=== PATIENT | female | born 1960 | race Caucasian/White ===

== ENCOUNTER 2016-08-14 08:04 | Outpatient (CLI) | payer OTHER ==
[~2016-08-14 08:04] MED LIST: ASPI81TA2 PO; CARV6.2554 PO; GLU500 PO; INSU100V9 SQ; METF1000 PO; MULT-518 PO; NPH,100V SUBCUT; OMEP20CA10 PO; OMEP20CA4 PO; PARO-41 PO; SIMV20TA2 PO; SIMV20TA6 PO
[2016-08-14 08:41] LABS: BASOPHILS % (AUTO) 0.5 % (0.0-2.0); EOSINOPHILS # (AUTO) 0.3 K/uL (0.0-0.4); EOSINOPHILS % (AUTO) 2.8 % (0.0-4.0); HEMATOCRIT 35.1 % (36-48); HEMOGLOBIN 11.2 g/dL (12.0-16.0); LYMPHOCYTES # (AUTO) 2.8 K/uL (1.0-5.5); LYMPHOCYTES % (AUTO) 28.4 % (20.5-51.5); MEAN CORPUSCULAR HEMOGLOBIN 24 pg (27-31); MEAN CORPUSCULAR HGB CONC 32 % (32-36); MEAN CORPUSCULAR VOLUME 75 fL (79.0-98.0); MONOCYTES # (AUTO) 0.7 K/uL (0.0-1.0); MONOCYTES % (AUTO) 6.6 % (1.7-9.3); NEUTROPHILS # (AUTO) 6.1 K/uL (1.8-7.7); NEUTROPHILS % (AUTO) 61.7 % (40.0-70.0); PLATELET COUNT (AUTO) 302 K/uL (130-430); RED BLOOD CELL COUNT(AUTO) 4.69 MIL/uL (4.2-6.2); RED CELL DISTRIBUTION WIDTH 14.1 % (9.0-15.0); WHITE BLOOD COUNT (AUTO) 9.9 K/uL (4.8-10.8)
[2016-08-14 09:08] LABS: IRON (SERUM) 32 mcg/dL (37-145); TOTAL IRON BIND. CAPACITY 493 ug/dL (250-450)
[2016-08-14 09:26] LABS: ALBUMIN 3.6 g/dL (3.4-4.8); CALCIUM 9.4 mg/dL (8.4-11.0); CREATININE 0.76 mg/dL (0.55-1.30); FREE T4 (FREE THYROXINE) 0.9 ng/dL (0.6-1.6); POTASSIUM 4.2 mmol/L (3.5-5.1); THYROID STIMULATING HORMONE 1.09 uIu/mL (0.34-4.82); TOTAL BILIRUBIN 0.2 mg/dL (0.0-1.0); TOTAL PROTEIN, SERUM 7.8 g/dL (6.4-8.3)
[2016-08-14 10:04] LABS: BILIRUBIN,URINE NEGATIVE (NEGATIVE); BLOOD, URINE NEGATIVE (NEGATIVE); CLARITY/URINE CLEAR (CLEAR); COLOR,URINE YELLOW (YELLOW); GLUCOSE,URINE 3+ (NEGATIVE); KETONES,URINE NEGATIVE (NEGATIVE); LEUKOCYTE ESTERASE ,URINE NEGATIVE (NEGATIVE); NITRITE, URINE NEGATIVE (NEGATIVE); PH,URINE 5.5 (5.0-8.0); PROTEIN URINE NEGATIVE (NEGATIVE); UROBILINOGEN,URINE 0.2 (0.2-1.0)
[2016-08-14 10:23] LABS: BACTERIA,URINE FEW /HPF (None Seen); RBC,URINE 0-3 /HPF (0-3); WBC,URINE 0-3 /HPF (0-3)
[2016-08-14 10:24] LABS: MUCUS,URINE None Seen /LPF (None Seen)
[2016-08-15 16:02] LABS: CREATININE, URINE 69.2 mg/dL (Not Estab.); MICROALBUMIN URINE RANDOM 10.3 ug/mL (Not Estab.); MICROALBUMIN/CREAT RATIO, UR 14.9 mg/g creat (0.0-30.0)
[2016-11-23] MEDS ORDERED: MELO15TA13 PO (17:09)
[2016-11-23] MEDS ORDERED: TRAM50TA92 PO (17:09)
[2016-11-23] MEDS ORDERED: LISI10TA5 PO (17:09)
== END 2016-08-14 20:52 | disposition home or self-care (01) ==
LOC: SLB 08:04
PROVIDERS: ATTEND Family Medicine
DX: Z12.11 Encounter for screening for malignant neoplasm of colon (principal); M54.2 Cervicalgia; M47.892 Other spondylosis, cervical region; Z83.3 Family history of diabetes mellitus
CPT/HCPCS: 36415; 72050-TC; 80053; 80061; 81000-TC; 82043; 82272; 82570; 83036; 83540-TC; 83550-TC; 84439; 84443-TC; 85025

== ENCOUNTER 2016-08-16 03:19 | Emergency (ER) | payer OTHER ==
[~2016-08-16] VITALS: Ht 167.6 cm; Wt 90.7 kg
[2016-08-16 03:19] VITALS: BP_SYST 165
[~2016-08-16 03:19] MED LIST changes: -INSU100V9 SQ
[2016-08-16] MEDS ORDERED: PREDNISONE 20 MG TABLET PO ONE (03:30)
[2016-08-16] MEDS ORDERED: IPRATROPIUM BROM 0.5 MG/2.5 ML VIAL.NEB (ATROVENT) IH ONE (03:30)
[2016-08-16] MEDS ORDERED: ALBUTEROL SULFATE 0.083% 2.5 MG/3 ML VIAL.NEB IH ONE (03:30)
[2016-08-16] MEDS ORDERED: KETOROLAC TROMETHAMINE 60 MG/2 ML VIAL IM ONE (04:45)
[2016-08-16 05:03] VITALS: BP_SYST 145
== END 2016-08-16 05:03 | disposition home or self-care (01) ==
LOC: SED 03:19
DX: R05 Cough (principal); R07.89 Other chest pain; R06.02 Shortness of breath; E11.9 Type 2 diabetes mellitus without complications; I10 Essential (primary) hypertension; Z91.040 Latex allergy status; Z79.82 Long term (current) use of aspirin; Z79.4 Long term (current) use of insulin; Z85.3 Personal history of malignant neoplasm of breast; Z98.890 Other specified postprocedural states; Z90.49 Acquired absence of other specified parts of digestive tract; Z88.1 Allergy status to other antibiotic agents
CPT/HCPCS: 94640; 96372; 99283; J1885; J7512

== ENCOUNTER 2016-09-06 10:16 | Outpatient (CLI) | payer OTHER | END 2016-09-06 18:59 | disposition home or self-care (01) | LOC: SRD 10:16 | PROVIDERS: ATTEND Family Medicine | DX: M48.02 Spinal stenosis, cervical region (principal); M47.892 Other spondylosis, cervical region | CPT/HCPCS: 72141 ==

== ENCOUNTER 2016-10-04 09:28 | Emergency (ER) | payer OTHER ==
[~2016-10-04] VITALS: Ht 167.6 cm; Wt 95.3 kg
[2016-10-04 09:42] VITALS: BP_SYST 150
[2016-10-04] MEDS ORDERED: IPRATROPIUM BROM 0.5 MG/2.5 ML VIAL.NEB (ATROVENT) IH ONE (10:45)
[2016-10-04] MEDS ORDERED: ALBUTEROL SULFATE 0.083% 2.5 MG/3 ML VIAL.NEB IH ONE (10:45)
[2016-10-04] MEDS ORDERED: IOHEXOL 100 ML IV ONE (11:59)
[2016-10-04 13:25] VITALS: BP_SYST 144
== END 2016-10-04 13:21 | disposition home or self-care (01) ==
LOC: SED 09:28
DX: J40 Bronchitis, not specified as acute or chronic (principal); J32.9 Chronic sinusitis, unspecified; C50.919 Malignant neoplasm of unspecified site of unspecified female breast; I10 Essential (primary) hypertension; E11.9 Type 2 diabetes mellitus without complications; Z91.040 Latex allergy status; Z88.1 Allergy status to other antibiotic agents; Z79.82 Long term (current) use of aspirin; Z79.4 Long term (current) use of insulin
CPT/HCPCS: 71020; 71260; 94640; 99284; Q9967

== ENCOUNTER 2016-12-13 00:28 | Emergency (ER) | payer OTHER ==
[~2016-12-13] VITALS: Ht 167.6 cm; Wt 95.3 kg
[~2016-12-13 00:28] MED LIST changes: -GLU500 PO; +LISI10TA5 PO; +MELO15TA13 PO; -OMEP20CA10 PO; -SIMV20TA2 PO; +TRAM50TA92 PO
[2016-12-13 00:34] VITALS: BP_SYST 163
[2016-12-13] MEDS ORDERED: OXYCODONE/ACETAMINOPHEN 5-325 TABLET PO ONE (01:30)
[2016-12-13] MEDS ORDERED: CYCLOBENZAPRINE HCL 10 MG TABLET (FLEXERIL) PO ONE (01:30)
[2016-12-13 01:50] VITALS: BP_SYST 158
== END 2016-12-13 01:50 | disposition home or self-care (01) ==
LOC: SED 00:28
DX: M54.2 Cervicalgia (principal); I10 Essential (primary) hypertension; E11.9 Type 2 diabetes mellitus without complications; Z85.3 Personal history of malignant neoplasm of breast; Z88.8 Allergy status to other drugs, medicaments and biological substances; Z79.82 Long term (current) use of aspirin; Z79.899 Other long term (current) drug therapy
CPT/HCPCS: 99283

== ENCOUNTER 2016-12-19 10:45 | Outpatient (CLI) | payer OTHER | END 2016-12-19 19:11 | disposition home or self-care (01) | LOC: SMI 10:45 | PROVIDERS: ATTEND Family Medicine | DX: I67.82 Cerebral ischemia (principal) | CPT/HCPCS: 70551 ==

== ENCOUNTER 2017-01-29 11:10 | Outpatient (CLI) | payer OTHER | END 2017-01-29 17:51 | disposition home or self-care (01) | LOC: SMI 11:10 | PROVIDERS: ATTEND Psychiatry & Neurology Neurology with Special Qualifications in Child Neurology | DX: M47.892 Other spondylosis, cervical region (principal); M25.78 Osteophyte, vertebrae | CPT/HCPCS: 72141 ==

== ENCOUNTER 2017-05-15 06:08 | Emergency (ER) | payer OTHER ==
[~2017-05-15] VITALS: Ht 167.6 cm; Wt 86.2 kg
[2017-05-15 06:14] VITALS: BP_SYST 149
[2017-05-15] MEDS ORDERED: PROMETHAZINE HCL 50 MG/ML AMP IM ONE (07:00)
[2017-05-15] MEDS ORDERED: ONDANSETRON 4 MG ODT TAB PO ONE (07:00)
[2017-05-15 07:42] LABS: BASOPHILS % (AUTO) 0.4 % (0.0-2.0); EOSINOPHILS # (AUTO) 0.3 K/uL (0.0-0.4); EOSINOPHILS % (AUTO) 3.3 % (0.0-4.0); HEMATOCRIT 33.2 % (36-48); LYMPHOCYTES # (AUTO) 2.6 K/uL (1.0-5.5); LYMPHOCYTES % (AUTO) 32.3 % (20.5-51.5); MEAN CORPUSCULAR HEMOGLOBIN 24 pg (27-31); MEAN CORPUSCULAR HGB CONC 33 % (32-36); MEAN CORPUSCULAR VOLUME 71 fL (79.0-98.0); MONOCYTES # (AUTO) 0.8 K/uL (0.0-1.0); MONOCYTES % (AUTO) 9.9 % (1.7-9.3); NEUTROPHILS # (AUTO) 4.5 K/uL (1.8-7.7); NEUTROPHILS % (AUTO) 54.1 % (40.0-70.0); PLATELET COUNT (AUTO) 293 K/uL (130-430); RED BLOOD CELL COUNT(AUTO) 4.68 MIL/uL (4.2-6.2); RED CELL DISTRIBUTION WIDTH 15.1 % (9.0-15.0); WHITE BLOOD COUNT (AUTO) 8.2 K/uL (4.8-10.8)
[2017-05-15 07:44] LABS: BILIRUBIN,URINE NEGATIVE (NEGATIVE); BLOOD, URINE NEGATIVE (NEGATIVE); CLARITY/URINE CLEAR (CLEAR); COLOR,URINE YELLOW (YELLOW); GLUCOSE,URINE 1+ (NEGATIVE); KETONES,URINE NEGATIVE (NEGATIVE); LEUKOCYTE ESTERASE ,URINE NEGATIVE (NEGATIVE); NITRITE, URINE NEGATIVE (NEGATIVE); PH,URINE 5.5 (5.0-8.0); PROTEIN URINE NEGATIVE (NEGATIVE); UROBILINOGEN,URINE 0.2 (0.2-1.0)
[2017-05-15] MEDS ORDERED: NACL 0.9% 1,000 ML IV ONE (07:45)
[2017-05-15 07:58] LABS: CALCIUM 9.7 mg/dL (8.4-11.0); CREATININE 0.69 mg/dL (0.55-1.30); POTASSIUM 3.9 mmol/L (3.5-5.1)
[2017-05-15 07:59] LABS: ALBUMIN 3.4 g/dL (3.4-4.8); TOTAL BILIRUBIN 0.2 mg/dL (0.0-1.0)
[2017-05-15 08:08] LABS: BACTERIA,URINE RARE /HPF (None Seen); MUCUS,URINE 1+ /LPF (None Seen); RBC,URINE 0-3 /HPF (0-3); WBC,URINE 0-3 /HPF (0-3)
[2017-05-15 09:47] VITALS: BP_SYST 135
== END 2017-05-15 09:47 | disposition home or self-care (01) ==
LOC: SED 06:08
DX: R11.10 Vomiting, unspecified (principal); R10.13 Epigastric pain; E11.9 Type 2 diabetes mellitus without complications; I10 Essential (primary) hypertension; Z85.3 Personal history of malignant neoplasm of breast; Z88.1 Allergy status to other antibiotic agents; Z91.040 Latex allergy status; Z79.899 Other long term (current) drug therapy
CPT/HCPCS: 36415; 74000; 80053; 81000; 83690; 85025; 96360; 96372; 99285; J2550; J7030; Q0162